=== PATIENT | male | born 1975 | race Caucasian/White ===

== ENCOUNTER 2022-12-23 10:36 | Emergency (ER) | payer OTHER, SELFPAY ==
--- NOTE | 2022-12-23 10:45 | ED.EXTPRO ---
HPI - Extremity Problem General Stated complaint: Out of medication; pain in both ankles Time Seen by Provider: 12/23/22 10:41 Source: patient and RN notes reviewed Mode of arrival: ambulatory Limitations: no limitations History of Present Illness HPI Narrative: Patient states that he is here from [place]. He apparently grabbed the wrong bottle of pain medication but only had a few of the pills in it and therefore has run out. He comes in today for refill of his OxyContin. He says he has chronic pain in his bilateral ankles. He has fractured them both. He has had surgeries on his right ankle and his left ankle is currently in a walking boot. He says that he called his doctor in [place] and they [place]. He will be here for another 5 days. He also takes some meloxicam. MD Complaint: extremity pain Related Data Home Medications Medication Instructions Recorded Confirmed Unable to Obtain Home Medications 12/23/22 12/23/22 Allergies Allergy/AdvReac Type Severity Reaction Status Date / Time No Known Allergies Allergy Verified 12/23/22 10:48 Review of Systems Review of Systems: All systems reviewed & are unremarkable except as noted in HPI and below PMFSH Past Medical History Medical History (Updated 12/23/22 @ 10:57 by Josué Elder MD) Hypertension Peripheral vascular disease Surgical History Surgical History (Updated 12/23/22 @ 10:57 by Josué Elder MD) History of ankle surgery multiple bilateral Social History Social History (Updated 12/23/22 @ 10:58 by Josué Elder MD) Smoking packs per day: 0.5 Smoking cigarettes per day: 10.0 Smoking status: Former smoker Tobacco type: cigarettes Smoking end date: 09/25/22 Exam Const: General: healthy appearing, no acute distress and alert Nutritional Appearance: well nourished Orientation/consciousness: patient oriented x3 Limitations: no limitations HENMT: Head: normal to inspection Ears: external ears normal Face/Nose/Sinus: Normal external nose present Face and sinus: normal facial exam Eyes: Conjunctivae: conjunctivae normal Pupils: Equal, round and reactive pupils present EOM: EOMs intact bilaterally Neck: Neck: normal visual inspection Resp: Effort & Inspection: normal respiratory effort Auscultation: clear to auscultation bilaterally Cardio: Rate: regular rate Rhythm: regular rhythm GI: GI Palp: Yes Soft to palpation and No Tenderness to palpation present (GI) Auscultation: normal bowel sounds Back/Spine/Pelvis: Cervical Spine: cervical ROM normal Thoracic/Lumbar Spine: thoraco-lumbar ROM normal Skin: General skin exam: normal color Rashes: no rashes Neuro: General: patient oriented x3, moves all extremities, no focal motor deficits and CN's II-XI intact bilaterally Speech: normal speech Gait exam (Neuro): Normal gait present Extrem: General: normal to inspection and no clubbing, cyanosis or edema Psych: Mental Status: mental status grossly normal Affect: normal affect Attitude: cooperative Course Course Emergency Course: I explained the patient that I am unable to refill narcotics in the emergency room. I suggested he establish himself with a primary care physician and see if he get a prescription for some medications while he was here. I offered him a prescription for nabumetone. He states he is already using meloxicam and Advil works better. Discharge Plan Discharge Clinical Impression: Ankle pain, chronic Qualifiers: Laterality: left Qualified Code(s): M25.572 - Pain in left ankle and joints of left foot Patient Disposition: Home, Self-Care Condition: Stable Instructions: Chronic Pain (ED) Additional Instructions: consider calling your family at home and have them overnight some of your pills through the mail so he can make it through the rest of the week otherwise establish herself with a primary care physician locally and see if they can prescri
[2022-12-23 10:49] VITALS: BP 173/91; PULSE 83; RESP 16; TEMP 36.8; O2SAT 99
[2022-12-23 11:05] VITALS: BP 173/91; PULSE 83; RESP 18; TEMP 36.8; O2SAT 99
== END 2022-12-23 11:07 | disposition home or self-care (01) ==
LOC: CHSED 11:01
PROVIDERS: Emergency Provider Emergency Medicine
DX: M25.572 Pain in left ankle and joints of left foot (principal); M25.571 Pain in right ankle and joints of right foot; I10 Essential (primary) hypertension; Z87.891 Personal history of nicotine dependence; Z98.890 Other specified postprocedural states
CPT/HCPCS: 99281